=== PATIENT | female | born 1950 | race Caucasian/White ===

== ENCOUNTER 2016-11-28 11:12 | Emergency (ER) | payer OTHER, MEDICAID ==
[~2016-11-28] VITALS: Ht 154.9 cm; Wt 72.6 kg
--- NOTE | 2016-11-28 11:15 | NUR ---
Patient to ER bed 04 to gown for evaluation. Side rails up.
--- NOTE | 2016-11-28 11:16 | NUR ---
Pt brought by daughter, A&Ox4, pt c/o generalized rash and itching, skin pink and warm, cap refill <3, VS WNL.
--- NOTE | 2016-11-28 11:18 | NUR ---
Dr Robbins at bedside examining patient
[2016-11-28 11:20] VITALS: BP_SYST 133
[2016-11-28] MEDS ORDERED: DEXAMETHASONE SOD PHOSPHATE 10 MG/ML VIAL IM ONE (11:45)
[2016-11-28] MEDS ORDERED: DIPHENHYDRAMINE HCL 25 MG CAPSULE PO ONE (11:45)
[2016-11-28] MEDS ORDERED: FAMOTIDINE 20 MG TABLET PO ONE (11:45)
[2016-11-28 12:10] VITALS: BP_SYST 133
--- NOTE | 2016-11-28 12:10 | NUR ---
Patient given written and verbal discharge instructions and verbalizes understanding. ER MD discussed with patient the results and treatment provided. Patient in stable condition. ID arm band removed. Rx of Claritin given. Patient educated on pain management and to follow up with PMD. Pain Scale 0/10 . Opportunity for questions provided and answered.
== END 2016-11-28 12:10 | disposition home or self-care (01) ==
LOC: SED 11:12
DX: L50.9 Urticaria, unspecified (principal)
CPT/HCPCS: 96372; 99283; J1100; Q0163

== ENCOUNTER 2017-06-25 09:06 | Outpatient (CLI) | payer OTHER, MEDICAID | END 2017-06-25 20:22 | disposition home or self-care (01) | LOC: SMA 09:06 | PROVIDERS: ATTEND Family Medicine | DX: Z12.31 Encounter for screening mammogram for malignant neoplasm of breast (principal) | CPT/HCPCS: G0202 ==

== ENCOUNTER 2017-07-20 09:01 | Outpatient (CLI) | payer OTHER, MEDICAID | END 2017-07-20 19:40 | disposition home or self-care (01) | LOC: SUS 09:01 | PROVIDERS: ATTEND Family Medicine | DX: N60.02 Solitary cyst of left breast (principal) | CPT/HCPCS: 76641 ==

== ENCOUNTER 2018-01-03 15:44 | Emergency (ER) | payer OTHER, MEDICAID ==
[~2018-01-03] VITALS: Ht 157.5 cm; Wt 78.0 kg
[2018-01-03 16:05] VITALS: BP_SYST 148
[2018-01-03 16:54] LABS: CALCIUM 8.2 mg/dL (8.4-11.0); CREATININE 1.11 mg/dL (0.55-1.30)
[2018-01-03 16:58] LABS: HEMOGLOBIN 16.1 g/dL (12.0-16.0); MEAN CORPUSCULAR HEMOGLOBIN 29 pg (27-31); MEAN CORPUSCULAR HGB CONC 34 % (32-36); MEAN CORPUSCULAR VOLUME 86 fL (79.0-98.0); PLATELET COUNT (AUTO) 387 K/uL (130-430); RED BLOOD CELL COUNT(AUTO) 5.49 MIL/uL (4.2-6.2); RED CELL DISTRIBUTION WIDTH 13.6 % (9.0-15.0)
[2018-01-03 16:59] LABS: INR 0.9 (0.8-1.2); PROTHROMBIN TIME 8.9 SECS (9.5-12.5); TOTAL BILIRUBIN 0.3 mg/dL (0.0-1.0)
[2018-01-03] MEDS ORDERED: POTASSIUM CHLORIDE 20 MEQ/PKT PACKET PO ONE (17:00)
[2018-01-03 17:01] LABS: POTASSIUM 2.9 mmol/L (3.5-5.1)
[2018-01-03 17:40] LABS: BAND % (MANUAL) 3 % (0-6); BASOPHILS % (MANUAL) 0 % (0-2); EOSINOPHILS % (MANUAL) 0 % (0-7); LYMPHOCYTES % (MANUAL) 32 % (20-46); MONOCYTES % (MANUAL) 5 % (0-11)
[2018-01-03] MEDS ORDERED: NACL 0.9% 1,000 ML IV ONE (17:45)
[2018-01-03] MEDS ORDERED: ONDANSETRON HCL 4 MG/2 ML VIAL IVP ONE (17:45)
[2018-01-03 17:59] LABS: CKMB RELATIVE INDEX 0.6 (0.0-2.9); CREATINE KINASE MB 2.6 ng/mL (0-3.6)
[2018-01-03 19:05] VITALS: BP_SYST 148
== END 2018-01-03 19:05 | disposition home or self-care (01) ==
LOC: SED 15:44
DX: E87.1 Hypo-osmolality and hyponatremia (principal); E87.6 Hypokalemia; I10 Essential (primary) hypertension; R79.1 Abnormal coagulation profile; Z90.710 Acquired absence of both cervix and uterus
CPT/HCPCS: 36415; 71045; 80053; 82550; 82553; 83880; 84484; 85007; 85027; 85610; 85730; 93005; 96361; 96374; 99285; J2405; J7030

== ENCOUNTER 2018-05-15 15:08 | Emergency (ER) | payer OTHER, MEDICAID ==
[~2018-05-15] VITALS: Ht 157.5 cm; Wt 72.6 kg
[2018-05-15 15:13] VITALS: BP_SYST 164
[2018-05-15 15:55] LABS: BILIRUBIN,URINE NEGATIVE (NEGATIVE); BLOOD, URINE 3+ (NEGATIVE); CLARITY/URINE SL HAZY (CLEAR); COLOR,URINE ORANGE (YELLOW); GLUCOSE,URINE NEGATIVE (NEGATIVE); KETONES,URINE NEGATIVE (NEGATIVE); LEUKOCYTE ESTERASE ,URINE 2+ (NEGATIVE); NITRITE, URINE POSITIVE (NEGATIVE); PROTEIN URINE 2+ (NEGATIVE)
[2018-05-15] MEDS ORDERED: LEVOFLOXACIN 500 MG TABLET PO ONE (16:00)
[2018-05-15] MEDS ORDERED: PHENAZOPYRIDINE HCL 100 MG TABLET PO ONE (16:00)
[2018-05-15 16:01] LABS: RBC,URINE 20-50 /HPF (0-3)
[2018-05-15 16:02] LABS: BACTERIA,URINE MODERATE /HPF (None Seen); MUCUS,URINE None Seen /LPF (None Seen); WBC,URINE 50-80 /HPF (0-3)
[2018-05-15 16:25] VITALS: BP_SYST 145
== END 2018-05-15 16:25 | disposition home or self-care (01) ==
LOC: SED 15:08
DX: N39.0 Urinary tract infection, site not specified (principal); E78.5 Hyperlipidemia, unspecified; I10 Essential (primary) hypertension; Z90.710 Acquired absence of both cervix and uterus
CPT/HCPCS: 81000-TC; 87086; 87186-TC; 99284

== ENCOUNTER 2018-10-10 11:28 | Emergency (ER) | payer MEDICAID, OTHER ==
[~2018-10-10] VITALS: Ht 154.9 cm; Wt 68.0 kg
[2018-10-10 11:34] VITALS: BP_SYST 138
[2018-10-10 12:10] VITALS: BP_SYST 138
== END 2018-10-10 12:10 | disposition home or self-care (01) ==
LOC: SED 11:28
DX: L50.9 Urticaria, unspecified (principal); I10 Essential (primary) hypertension; E78.5 Hyperlipidemia, unspecified
CPT/HCPCS: 99281

== ENCOUNTER 2018-12-05 14:09 | Emergency (ER) | payer OTHER ==
[~2018-12-05] VITALS: Ht 157.5 cm; Wt 70.8 kg
[2018-12-05 14:50] VITALS: BP_SYST 162
--- NOTE | 2018-12-05 15:43 | NUR ---
Patient to ER bed 4 to gown for evaluation. Side rails up. Report given to Farhat HUMMEL.
--- NOTE | 2018-12-05 15:45 | NUR ---
ED PA Tran bedside evaluating patient.
--- NOTE | 2018-12-05 15:45 | NUR ---
Patient ambulatory to ED a/o x 4 with c/o cold like symptoms. Reports recent cough x 4 days. Non-productive with no associated SOB. New onset right sided earache prompting ED visit. 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 Subjective fevers.
[2018-12-05] MEDS ORDERED: ACETAMINOPHEN 500 MG TABLET PO ONE (16:00)
--- NOTE | 2018-12-05 16:20 | NUR ---
Patient given written and verbal discharge instructions and verbalizes understanding. ER MD discussed with patient the results and treatment provided. Patient in stable condition. ID arm band removed. Rx of augmentin,promethazine with dextromethorphan given. Patient educated on pain management and to follow up with PMD. Pain Scale 3/10 tolerable for patient. Opportunity for questions provided and answered. Medication side effect fact sheet provided.
[2018-12-05 16:23] VITALS: BP_SYST 162
== END 2018-12-05 16:23 | disposition home or self-care (01) ==
LOC: SED 14:09
DX: H66.91 Otitis media, unspecified, right ear (principal); J06.9 Acute upper respiratory infection, unspecified; I10 Essential (primary) hypertension; E78.5 Hyperlipidemia, unspecified
CPT/HCPCS: 99283

== ENCOUNTER 2023-08-07 08:27 | Emergency (ER) | payer OTHER ==
[~2023-08-07] VITALS: Ht 154.9 cm; Wt 70.3 kg
[2023-08-07 08:50] VITALS: BP_SYST 156; PULSE 95; RESP 17; TEMP 98.1; O2SAT 95
[2023-08-07 09:28] LABS: BASOPHILS # (AUTO) 0.1 K/uL (0.0-0.2); BASOPHILS % (AUTO) 0.5 % (0.0-2.0); EOSINOPHILS # (AUTO) 0.2 K/uL (0.0-0.4); EOSINOPHILS % (AUTO) 1.7 % (0.0-4.0); HEMATOCRIT 38.2 % (36-48); HEMOGLOBIN 12.7 g/dL (12.0-16.0); LYMPHOCYTES # (AUTO) 2.4 K/uL (1.0-5.5); LYMPHOCYTES % (AUTO) 19.7 % (20.5-51.5); MEAN CORPUSCULAR HEMOGLOBIN 28 pg (27-31); MEAN CORPUSCULAR HGB CONC 33 % (32-36); MEAN CORPUSCULAR VOLUME 85 fL (79.0-98.0); MONOCYTES # (AUTO) 0.8 K/uL (0.0-1.0); MONOCYTES % (AUTO) 6.6 % (1.7-9.3); NEUTROPHILS # (AUTO) 8.6 K/uL (1.8-7.7); NEUTROPHILS % (AUTO) 71.5 % (40.0-70.0); PLATELET COUNT (AUTO) 339 K/uL (130-430); RED BLOOD CELL COUNT(AUTO) 4.51 MIL/uL (4.2-6.2); RED CELL DISTRIBUTION WIDTH 13.9 % (9.0-15.0)
[2023-08-07 09:37] LABS: ANION GAP 12 (5-15); CALCIUM 9.9 mg/dL (8.4-11.0); CARBON DIOXIDE 25 mmol/L (23-29); CHLORIDE 101 mmol/L (98-107); CREATININE 0.91 mg/dL (0.55-1.30); GLUCOSE 142 mg/dL (74-106); POTASSIUM 3.6 mmol/L (3.5-5.1); SODIUM SERUM 138 mmol/L (136-145); UREA NITROGEN, BLOOD 14 mg/dL (8-21)
[2023-08-07 09:41] LABS: ALANINE AMINOTRANSFERASE 27 U/L (12-78); ASPARTATE AMINOTRANSFERASE 18 U/L (10-37); BILIRUBIN,DIRECT 0.2 mg/dL (0.0-0.3); LIPASE 26 U/L (16-77); TOTAL BILIRUBIN 0.7 mg/dL (0.0-1.0)
[2023-08-07] MEDS ORDERED: PANTOPRAZOLE SODIUM 40 MG TAB PO ONE (09:45)
[2023-08-07] MEDS ORDERED: OMEP40CA20 PO (09:54)
[2023-08-07 10:12] VITALS: BP_SYST 156; PULSE 95; RESP 17; TEMP 98.1; O2SAT 95
== END 2023-08-07 10:05 | disposition home or self-care (01) ==
LOC: SED 08:27
DX: K29.00 Acute gastritis without bleeding (principal); R10.13 Epigastric pain; I10 Essential (primary) hypertension; E78.5 Hyperlipidemia, unspecified; Z79.899 Other long term (current) drug therapy
CPT/HCPCS: 36415; 80048; 80076; 83690; 85025; 99283